=== PATIENT | male | born 1995 | race Caucasian/White ===

== ENCOUNTER 2023-09-17 18:19 | Emergency (ER) | payer MEDICAID, SELFPAY ==
[2023-09-17 18:26] VITALS: BP 165/94; PULSE 83; RESP 18; TEMP 36.9; O2SAT 100; BMI 19.3
--- NOTE | 2023-09-17 18:33 | PC.NURSE ---
Pt evaluated by [facility] in triage, cleared for dc home, awaiting discharge papers.
--- NOTE | 2023-09-17 18:34 | ED_ITS ---
HPI - General Adult General Chief complaint: Skin/Abscess/Foreign Body Stated complaint: Cyst on face Time Seen by Provider: 09/17/23 18:33 Source: patient Mode of arrival: ambulatory Limitations: no limitations History of Present Illness HPI narrative: Patient is a 28-year-old male presenting to the emergency department with complaint of redness, pain and swelling to chin for two days. Denies drainage. Denies history of same in the past. Denies fevers/sweats/chills. Denies attempting to drain abscess at home. complaint: facial abscess Onset (ago): day(s) Location: face Radiation: non-radiation Severity: mild Quality: dull Pain Consistency: colicky Relieving factors: none Exacerbating factors: other (palpation) Associated symptoms: denies other symptoms Treatments prior to arrival: none Related Data Previous Rx's Medication Instructions Recorded cephalexin 500 mg capsule 500 mg PO QID #28 caps 09/17/23 doxycycline hyclate 100 mg tablet 100 mg PO BID #14 tabs 09/17/23 mupirocin 2 % topical ointment 1 appl topical TID #15 grams 09/17/23 Allergies Allergy/AdvReac Type Severity Reaction Status Date / Time No Known Allergies Allergy Unverified 05/19/20 16:34 [No Known Allergies*] Review of Systems 2 Review of Systems: As per HPI. Yes all other systems are reviewed and are negative Constitutional: Constitutional: Reports as per HPI Physical Exam ED Vital Signs: Vital Signs - 24 hr 09/17/23 18:26 Temperature 98.5 F Pulse Rate 83 Respiratory Rate 18 Blood Pressure 165/94 H Pulse Oximetry 100 Oxygen Delivery Method Room Air BMI result Body Mass Index 19.3 Vital signs have been reviewed and appear to be correct. Blood pressure elevated. Heart rate normal. Respiratory rate normal. Temperature normal. Oxygen saturation normal. Const General: cooperative, healthy appearing and no acute distress Orientation/consciousness: oriented to person, oriented to place, oriented to time and patient oriented x3 Limitations: no limitations HENMT Head: Yes normocephalic and Yes atraumatic Ears: external ears normal General nose exam: Normal external nose present Face and sinus: Yes face symmetric Face images: 2 1. erythema, induration, warmth around hair follicles without drainage or fluctuance Mouth: oropharynx normal and moist mucous membranes Throat: Yes uvula midline Eyes Pupils: Equal, round and reactive pupils present Neck Neck: Yes normal visual inspection and Yes supple Lymphatic: no lymphadenopathy noted Resp Effort & Inspection: normal respiratory effort and able to speak in complete sentences Auscultation: clear to auscultation bilaterally Cardio Rate: regular rate Rhythm: regular rhythm Heart sounds: S1 normal heart sound present and S2 normal heart sound present Skin General skin exam: elasticity normal and turgor normal Neuro General: oriented to person, oriented to place, oriented to time, patient oriented x3, moves all extremities, no focal motor deficits and CN's II-XI intact bilaterally Cranial nerves: Yes Equal, round and reactive pupils present Cognition (Neuro): normal cognition Extrem General: Yes full ROM, Yes no pedal edema and Yes no calf tenderness Psych Mental Status: mental status grossly normal Affect: normal affect Thought process: Normal thought process present Medical Decision Making Medical Decision Making [facility] Narrative: Patient is a 28-year-old male presenting to the emergency department with complaint of redness, pain and swelling to chin for two days. On exam patient is awake, A+Ox3, BP elevated, VS otherwise WNL, afebrile, normal neurological exam without focal deficits, physical exam findings as above. Given reported symptoms and physical exam findings, initial differential includes folliculitis, abscess, cellulitis. Will treat with doxycycline, keflex, and mupirocin. Strict return precautions discussed. Discussed with patient the importance of completing full course of antibiotics. Instructed patient to follow up with PCP. Patient verbalized understanding of and agreement with plan. Differential Diagnosis Differential Diagnoses: The differential diagnosis associated with the presentation includes As per [facility] External Record Review External record reviewed: Inpatient record, Office record and Outpatient record Prescription Management I considered prescription management with: Antibiotic Discharge Plan Discharge Clinical Impression: Facial abscess Patient Disposition: Home, Self-Care Instructions: Abscess (ED), Abscess Follow-up (ED) Additional Instructions: You were evaluated in the ER for an abscess. Please keep the area surrounding the abscess clean and dry. You were given a prescription for antibiotics, please take the antibiotics as directed for the full course of the medication. You are also being prescribed a topical ointment that you can apply three times daily. You should perform a skin check of the area daily. You can apply warm compresses for 10-15 minutes at a time several times daily. Do not attempt to pop or drain the abscess yourself. If the abscess progresses you may have to have the abscess incised and drained. You can use Tylenol or ibuprofen per package directions as needed for pain. If necessary, you can alternate these medications so that you take one medication every 3 hours. For instance, at noon take ibuprofen, then at 3:00 p.m. take Tylenol, then at 6:00 p.m. take ibuprofen. Please schedule an appointment with your primary care physician as soon as possible for follow-up. Return to the emergency department if you experience fevers greater than 100.4? F, increased in area of redness or swelling, increasing amount of discharge from the area, increased tenderness around the area, or any other concerning symptoms. Prescriptions: New doxycycline hyclate 100 mg tablet 100 mg PO BID Qty: 14 0RF cephalexin 500 mg capsule 500 mg PO QID Qty: 28 0RF mupirocin 2 % ointment 1 appl topical TID Qty: 15 0RF
== END 2023-09-17 18:57 | disposition home or self-care (01) ==
PROVIDERS: Emergency Provider Emergency Medicine Emergency Medical Services
DX: L02.01 Cutaneous abscess of face (principal)
CPT/HCPCS: 99282; 99283